=== PATIENT | male | born 1960 | race Two or more races ===

== ENCOUNTER 2019-09-10 13:01 | Emergency (ER) | payer OTHER ==
[~2019-09-10] VITALS: Ht 180.3 cm; Wt 106.8 kg
[2019-09-10] MEDS ORDERED: ACETAMINOPHEN 500 MG TABLET PO ONE ×2 (13:45)
--- NOTE | 2019-09-10 13:51 | RAD ---
EXAM: CHEST PA LATERAL INDICATION: Cough. TECHNIQUE: PA and lateral views COMPARISON: None FINDINGS: The heart size is normal. The great vessels appear unremarkable. There is no hilar or mediastinal mass. Lungs show hazy opacification in the bilateral lung bases, slightly more conspicuous than on the left. There is no pleural effusion or pneumothorax. There are no significant osseous abnormalities. IMPRESSION: Bilateral hazy opacities in the lung bases. Correlate for any clinical evidence of pneumonia. Electronically signed by: Edward Olvera MD (09/10/2019 1:48 PM) [id number]
[2019-09-10] MEDS ORDERED: AMOX1TAB61 PO (14:07)
--- NOTE | 2019-09-10 14:07 | PHYS DOC ---
Adult General Chief Complaint Chief Complaint: COUGH HPI HPI Patient is a 59-year-old male who presents with complaint of three-day history of productive cough. Patient states that cough is been productive of green sputum. He denies any shortness of breath or fever. Patient states that he recently gotten out of prison and has been placed at [facility]. He denies any chest pain or other symptoms.[] Review of Systems Review of Systems Constitutional: Denies fever or chills [] Respiratory: Positive cough without shortness of breath [] Cardiovascular: No additional information not addressed in HPI [] GI: Denies abdominal pain, nausea, vomiting, bloody stools or diarrhea [] Integument: Denies rash or skin lesions [] Current Medications Current Medications Current Medications Medications (Trade) Dose Ordered Sig/Jenny Start Time Stop Time Status Last Admin Dose Admin Acetaminophen (Tylenol) 1,000 mg 1X ONCE 09/10/19 13:45 09/10/19 13:30 DC Allergies Allergies Allergies Coded Allergies Type Severity Reaction Last Updated Verified No Known Drug Allergies 09/10/19 No Physical Exam Physical Exam Constitutional: Well developed, well nourished, no acute distress, non-toxic appearance. [] Cardiovascular:Heart rate regular rhythm, no murmur [] Lungs & Thorax: Fine rhonchi are noted bilaterally to auscultation [] Skin: Warm, dry, no erythema, no rash. [] Extremities: No tenderness, no cyanosis, no clubbing, ROM intact, no edema. [] EKG EKG [] Radiology/Procedures Radiology/Procedures [] Impressions: PROCEDURE: CHEST PA & LATERAL EXAM: CHEST PA LATERAL INDICATION: Cough. TECHNIQUE: PA and lateral views COMPARISON: None FINDINGS: The heart size is normal. The great vessels appear unremarkable. There is no hilar or mediastinal mass. Lungs show hazy opacification in the bilateral lung bases, slightly more conspicuous than on the left. There is no pleural effusion or pneumothorax. There are no significant osseous abnormalities. IMPRESSION: Bilateral hazy opacities in the lung bases. Correlate for any clinical evidence of pneumonia. Electronically signed by: Edward Olvera MD (09/10/2019 1:48 PM) [id number] Course & Med Decision Making Course & Med Decision Making Pertinent Labs and Imaging studies reviewed. (See chart for details) [] Dragon Disclaimer Dragon Disclaimer This electronic medical record was generated, in whole or in part, using a voice recognition dictation system. Departure Departure: Impression: Primary Impression: Bronchitis Disposition: 01 HOME, SELF-CARE Condition: STABLE Referrals: JAZMIN MIDDLETON (PCP) Patient Instructions: Acute Bronchitis Scripts Amoxicillin/Potassium Clav (AUGMENTIN 875-125 TABLET) 1 Each Tablet 1 TAB PO BID for infection for 10 Days, #20 TAB 0 Refills Prov: TONE SINCLAIR Jr. DO 09/10/19 TONE SINCLAIR Jr. DO Sep 10, 2019 14:07
[2019-09-10] MEDS ORDERED: AMOXICILLIN/K CLAV 875/125MG TABLET. PO ONE (14:15)
[2019-09-11 11:53] VITALS: BP 170/103
== END 2019-09-10 14:12 | disposition home or self-care (01) ==
LOC: ER 13:01
DX: J40 Bronchitis, not specified as acute or chronic (principal)
CPT/HCPCS: 71046; 99283